=== PATIENT | male | born 1965 | race Two or more races ===

== ENCOUNTER 2018-06-18 12:20 | Inpatient (IN) | payer BC, OTHER ==
[~2018-06-18] VITALS: Ht 180.3 cm; Wt 104.1 kg
[2018-06-18] MEDS ORDERED: SODIUM CHLORIDE 0.9% 1,000 ML IV ONE (12:39)
[2018-06-18] MEDS ORDERED: NITROGLYCERIN 0.4 MG SL TAB SL ONE (12:45)
[2018-06-18] MEDS ORDERED: ASPirin 81 mg TAB PO ONE (12:45)
[2018-06-18 13:49] LABS: Basophils # (auto) 0 uL; Basophils % (auto) 0.3 % (0.0-2.0); Eosinophils # (auto) 0.2 uL; Eosinophils % (auto) 1.7 % (0.0-7.0); Hematocrit 47.2 % (41.0-53.0); Hemoglobin 15.3 g/dL (13.5-17.5); Lymphocytes # (auto) 1.8 uL; Lymphocytes % (auto) 13.3 % (10.0-50.0); Mean Corpuscular Hemoglobin 28.4 pg (28.0-32.0); Mean Corpuscular Hgb Conc. 32.5 g/dL (32.0-36.0); Mean Corpuscular Volume 87.5 fL (80.0-100.0); Monocytes # (auto) 1.1 uL; Monocytes % (auto) 7.7 % (0.0-12.0); Neutrophils # (auto) 10.6 uL; Nucleated Red Blood Cells % 0.1 %; Platelet Count (auto) 207 10^3/uL (140-450); Red Blood Cells 5.39 10^6/uL (4.5-5.90); Red Cell Distribution Width 12.3 % (11.8-14.3); White Blood Cell 13.8 10^3/uL (4.4-10.8)
[2018-06-18 14:03] LABS: INR 0.93 (0.9-1.15); Partial Thromboplastin Time 27.8 sec (23.78-33.04)
[2018-06-18 14:06] LABS: Chloride 104 mmol/L (98-107); Potassium 4.3 mmol/L (3.5-5.1); Sodium 139 mmol/L (136-145)
[2018-06-18 14:11] LABS: Albumin 4.4 g/dL (3.4-5.0); Anion Gap 10 (5-15); BUN/Creatinine Ratio 20.5; Blood Urea Nitrogen 26 mg/dL (7-18); Calcium 9.4 mg/dL (8.5-10.1); Carbon Dioxide 25 mmol/L (21-32); GFR African American 77 mL/min; GFR Non-African American 63 mL/min; Glucose 96 mg/dL (74-106)
[2018-06-18 14:25] LABS: Alanine Aminotransferase 77 U/L (16-61); Alkaline Phosphatase 78 U/L (45-117); Aspartate Aminotransferase 34 U/L (15-37); Bilirubin, Total 0.5 mg/dL (0.2-1.0); Total Protein 8.5 g/dL (6.4-8.2)
[2018-06-18] MEDS ORDERED: NITROGLYCERIN 0.4 MG SL TAB SL PRN (16:15)
[2018-06-18] MEDS ORDERED: LORazepam 0.5 MG TAB PO PRN (16:15)
[2018-06-18] MEDS ORDERED: HYDROcodone-ACET 5/325MG TAB PO PRN (16:15)
[2018-06-18] MEDS ORDERED: MORPHINE SULF INJ 2 MG/ML SYRINGE 1ML IV PRN (16:15)
[2018-06-18] MEDS ORDERED: ACETAMINOPHEN 500 MG TAB PO PRN (16:15)
[2018-06-18] MEDS ORDERED: PROMETHAZINE HCL 25 MG/ML 1ML IV PRN (16:15)
[2018-06-18] MEDS ORDERED: LACTULOSE 20Gm/30ML SOLN PO PRN (16:15)
[2018-06-18] MEDS: SODIUM CHLORIDE 0.9% 1,000 ML IV SCH (17:10)
[2018-06-18] MEDS ORDERED: HYDROCORTISONE SOD SUCC 100 MG/2ML INJ VIAL IV ONE (17:30)
[2018-06-18 19:07] LABS: Urine Bacteria NONE SEEN /hpf (None Seen); Urine Blood 1+ /uL (Negative); Urine Mucus FEW (None Seen); Urine WBC <1 /hpf (0 - 3)
[2018-06-18 19:26] LABS: Alcohol, Urine < 3.0 mg/dL (0-5); Amphetamine Screen, Urine NEGATIVE (NEGATIVE); Barbiturate Scree,Urine NEGATIVE (NEGATIVE); Benzodiazephine Screen, Urine NEGATIVE (NEGATIVE); Cannabinoid Screen, Urine NEGATIVE (NEGATIVE); Cocaine Screen, Urine NEGATIVE (NEGATIVE); Opiate Scree,Urine NEGATIVE (NEGATIVE); Phencyclidine Screen, Urine NEGATIVE (NEGATIVE)
[2018-06-18 20:00] VITALS: BP 161/101
[2018-06-18] MEDS ORDERED: cloNIDine HCL 0.1 MG TAB PO PRN (20:30)
[2018-06-18] MEDS ORDERED: cloNIDine HCL 0.1 MG TAB ONE (20:51)
[2018-06-18] MEDS: TEMAZEPAM 15 MG CAP PO PRN (21:00)
[2018-06-18] MEDS: ATORVASTATIN 20 MG TAB PO SCH (21:01)
[2018-06-18 21:55] VITALS: BP 168/109
[2018-06-18 21:56] VITALS: BP 133/86
[2018-06-18] MEDS ORDERED: METOPROLOL TARTRATE 25 MG TAB PO SCH (22:00)
[2018-06-19 04:57] VITALS: BP 108/73
[2018-06-19] MEDS: SODIUM CHLORIDE 0.9% 1,000 ML IV SCH ×2 (05:24→18:42)
[2018-06-19 05:31] LABS: Basophils # (auto) 0 uL; Basophils % (auto) 0.2 % (0.0-2.0); Eosinophils # (auto) 0.2 uL; Eosinophils % (auto) 1.8 % (0.0-7.0); Hematocrit 44.9 % (41.0-53.0); Hemoglobin 14.7 g/dL (13.5-17.5); Lymphocytes # (auto) 2.3 uL; Lymphocytes % (auto) 17.5 % (10.0-50.0); Mean Corpuscular Hemoglobin 28.6 pg (28.0-32.0); Mean Corpuscular Hgb Conc. 32.9 g/dL (32.0-36.0); Mean Corpuscular Volume 87.2 fL (80.0-100.0); Monocytes # (auto) 1.3 uL; Monocytes % (auto) 9.7 % (0.0-12.0); Neutrophils # (auto) 9.3 uL; Neutrophils % (auto) 70.8 % (37.0-80.0); Nucleated Red Blood Cells % 0.1 %; Platelet Count (auto) 197 10^3/uL (140-450); Red Blood Cells 5.15 10^6/uL (4.5-5.90); Red Cell Distribution Width 12.4 % (11.8-14.3); White Blood Cell 13.2 10^3/uL (4.4-10.8)
[2018-06-19 06:10] LABS: Cholesterol 157 mg/dL (< 200); HDL Cholesterol 40 mg/dL (40-59); LDL Cholesterol 105 mg/dL (< 100); Triglycerides 120 mg/dL (< 150)
[2018-06-19 08:34] VITALS: BP 141/84
[2018-06-19] MEDS ORDERED: METOPROLOL SUCCINATE XL 50 MG TAB PO ONE (10:00)
[2018-06-19] MEDS ORDERED: NITROGLYCERIN 0.2MG/HR TOPICAL PATCH TD SCH (10:00)
[2018-06-19] MEDS ORDERED: predniSONE 20 MG TAB PO ONE (10:00)
[2018-06-19] MEDS ORDERED: ASPirin 81 mg TAB PO SCH (10:00)
[2018-06-19] MEDS ORDERED: ENOXAPARIN SOD 40 MG/0.4 ML SYRINGE SC SCH (10:00)
[2018-06-19] MEDS: PANTOPRAZOLE 40 MG TAB PO SCH (10:40)
[2018-06-19 13:46] VITALS: BP 151/83
[2018-06-19] MEDS ORDERED: IOHEXOL 350 MG/ML 100ML IJ ONE (13:53)
[2018-06-19] MEDS ORDERED: LIDOCAINE 2%HCL (LOCAL ANESTH.) INJ 10ml MDV ONE (13:53)
[2018-06-19] MEDS ORDERED: MIDAZOLAM HCL 1MG/1ML-2 ML VIAL ONE (14:17)
[2018-06-19] MEDS ORDERED: SODIUM CHL 0.9% 0 ML ONE (14:17)
[2018-06-19] MEDS ORDERED: ANGIOMAX 250 MG VIAL IV ONE (14:17)
[2018-06-19] MEDS ORDERED: fentaNYL CITRATE 100 MCG/2 ML VL ONE (14:17)
[2018-06-19 16:33] VITALS: BP 148/78
[2018-06-19] MEDS: MORPHINE SULF INJ 2 MG/ML SYRINGE 1ML IV PRN ×2 (17:13→23:02)
[2018-06-19 18:44] VITALS: BP 138/76
[2018-06-19 21:37] VITALS: BP 142/95
[2018-06-19] MEDS: ATORVASTATIN 20 MG TAB PO SCH (23:02)
[2018-06-19] MEDS: TEMAZEPAM 15 MG CAP PO PRN (23:03)
[2018-06-20 04:59] VITALS: BP 122/80
[2018-06-20 05:40] LABS: Basophils # (auto) 0 uL; Basophils % (auto) 0.1 % (0.0-2.0); Eosinophils # (auto) 0 uL; Eosinophils % (auto) 0.2 % (0.0-7.0); Hematocrit 45.3 % (41.0-53.0); Hemoglobin 14.4 g/dL (13.5-17.5); Lymphocytes % (auto) 12.8 % (10.0-50.0); Mean Corpuscular Hemoglobin 28.1 pg (28.0-32.0); Mean Corpuscular Hgb Conc. 31.9 g/dL (32.0-36.0); Mean Corpuscular Volume 88.1 fL (80.0-100.0); Monocytes # (auto) 1.3 uL; Monocytes % (auto) 8.3 % (0.0-12.0); Neutrophils # (auto) 12.3 uL; Neutrophils % (auto) 78.6 % (37.0-80.0); Platelet Count (auto) 211 10^3/uL (140-450); Red Blood Cells 5.14 10^6/uL (4.5-5.90); Red Cell Distribution Width 12.6 % (11.8-14.3); White Blood Cell 15.7 10^3/uL (4.4-10.8)
[2018-06-20 06:23] LABS: Albumin 3.8 g/dL (3.4-5.0); BUN/Creatinine Ratio 11.3; Bilirubin, Total 0.5 mg/dL (0.2-1.0); Calcium 8.8 mg/dL (8.5-10.1); Potassium 4.1 mmol/L (3.5-5.1); Total Protein 7.8 g/dL (6.4-8.2)
[2018-06-20] MEDS: SODIUM CHLORIDE 0.9% 1,000 ML IV SCH (08:04)
[2018-06-20 08:18] VITALS: BP 141/77
[2018-06-20] MEDS ORDERED: METOPROLOL SUCCINATE XL 50 MG TAB PO SCH (10:00)
[2018-06-20] MEDS ORDERED: predniSONE 20 MG TAB PO SCH (10:00)
[2018-06-20] MEDS: PANTOPRAZOLE 40 MG TAB PO SCH (10:25)
[2018-06-20 12:00] VITALS: BP 126/74
[2018-06-20 15:24] VITALS: BP 126/74
== END 2018-06-20 16:01 | disposition home or self-care (01) | DRG 286 ==
LOC: ER 12:25 → TELE 12:26 → TELE-WESTW 19:58
PROVIDERS: ADMIT Internal Medicine; ATTEND Internal Medicine
PROC: 4A023N7 Measurement of Cardiac Sampling and Pressure, Left Heart, Percutaneous Approach (ICD-10-PCS; principal; 2018-06-19)
PROC: B2111ZZ Fluoroscopy of Multiple Coronary Arteries using Low Osmolar Contrast (ICD-10-PCS; 2018-06-19)
PROC: B2151ZZ Fluoroscopy of Left Heart using Low Osmolar Contrast (ICD-10-PCS; 2018-06-19)
DX: I30.9 Acute pericarditis, unspecified (principal); I50.33 Acute on chronic diastolic (congestive) heart failure; I24.9 Acute ischemic heart disease, unspecified; R65.10 Systemic inflammatory response syndrome (SIRS) of non-infectious origin without acute organ dysfunction; F17.210 Nicotine dependence, cigarettes, uncomplicated; I11.0 Hypertensive heart disease with heart failure; I25.10 Atherosclerotic heart disease of native coronary artery without angina pectoris; I16.0 Hypertensive urgency; G24.9 Dystonia, unspecified; Z88.8 Allergy status to other drugs, medicaments and biological substances
CPT/HCPCS: 36415; 71046; 80053; 80061; 80307; 81001; 82550; 83880; 84443; 84484; 85025; 85379; 85610; 85652; 85730; 86141; 93005; 93306; 93458; 94761; 96361; 96374; 99152; A6257; J2001; J2250